=== PATIENT | female | born 2000 | race Two or more races ===

== ENCOUNTER 2024-04-20 21:35 | Emergency (ER) | payer OTHER ==
[~2024-04-20] VITALS: Ht 162.6 cm; Wt 46.3 kg
[2024-04-21] MEDS ORDERED: GUAIFENESIN 200 MG/10 ML BLIST.PACK PO STA (00:47)
[2024-04-21] MEDS ORDERED: DIPHENHYDRAMINE HCL 12.5 MG/5 ML BLIST.PACK PO STA (00:47)
[2024-04-21 01:08] LABS: HEMATOCRIT 42.9 % (36.0-45.00); HEMOGLOBIN 14.6 g/dL (12.0-15.00); MEAN CORPUSCULAR HEMOGLOBIN 30.9 pg (27.00-32.0); PLATELET COUNT 244 K/uL (150-450); RED BLOOD COUNT 4.71 M/uL (4.00-6.00); RED CELL DISTRIBUTION WIDTH 12.3 % (11.5-14.5)
[2024-04-21 01:38] LABS: CALCIUM 9.1 mg/dL (8.5-10.1); CREATININE SERUM 0.93 mg/dL (0.55-1.02); GFR 73.46; POTASSIUM 4.19 mEq/L (3.5-5.1)
[2024-04-21] MEDS ORDERED: ZYNCOF 20-400120 ML PO (02:10)
== END 2024-04-21 02:35 ==
LOC: ER 21:36
PROVIDERS: General Practice
DX: J06.9 Acute upper respiratory infection, unspecified (principal); R42 Dizziness and giddiness; H93.19 Tinnitus, unspecified ear